=== PATIENT | male | born 1960 | race Caucasian/White ===

== ENCOUNTER 2016-10-12 17:10 | Inpatient (IN) | payer MEDICARE ==
--- NOTE | ~2016-10-12 | CT2 ---
[facility] A Service of [facility] & [facility] RADIOLOGY TEXT RESULTS PATIENT: NANCY COLLAZO LOCATION: [address] : 56 UNIT #: [id number] AGE: [address]: Kinga Bartholomew MD SEX: M ORDER DR: [id number] [facility] [address] [facility]. [place], [place] [address] [id number] I MR#: [id number] Acc #: [id number] NAME: NANCY COLLAZO. : 1960 SEX: M STUDY DATE/TIME: 10/12/2016 15:00 UNIT: [facility] ROOM: [facility] STUDY DESCRIPTION: CT Abd and Pelv W Cont Attending Physician: Narda Guevara M.D. Ordering Physician: Rosie Velasquez M.D. Primary Care Physician: Primary Care Physician No MEDICAL IMAGING REPORT This report is preliminary unless electronic signature is present EXAM CT abdomen and pelvis with IV contrast. HISTORY Abdomen pain today. This CT exam was performed with one or more of the following radiation dose reduction techniques: automatic exposure control, adjustment of mA and/or kV according to patient size, and iterative reconstruction. FINDINGS CT abdomen and pelvis was performed with IV contrast. CT ABDOMEN: Mild diffuse fatty infiltration of the liver. Cholecystectomy. The spleen, and adrenal glands are normal. Multifocal small parenchymal scars in both kidneys and incidental small bilateral renal cysts. Generalized pancreatic parenchymal atrophy. No ascites. Normal caliber abdominal aorta. No adenopathy. Mild diffuse colonic wall thickening, but no bowel dilatation. No ascites or adenopathy. CT PELVIS: Mild diffuse wall thickening of the sigmoid colon and rectum. No bowel dilatation. Mild colonic diverticulosis but no diverticulitis. No free fluid. Singletary catheter in the urinary bladder. Implanted pump in the subcutaneous tissues over the left anterior pelvis with catheter extending into the lumbar spinal canal. IMPRESSION 1. Mild diffuse wall thickening of the colon and rectum could be due to mild infectious or inflammatory colitis. No bowel dilatation or inflammatory stranding in the abdomen or pelvis. No ascites. 2. Fatty infiltration of the liver. 3. Incidental multifocal parenchymal scarring in both kidneys. STS. [facility] A Service of [facility] & [facility] RADIOLOGY TEXT RESULTS PATIENT: NANCY COLLAZO LOCATION: [address] : [birth year] UNIT #: [id number] AGE: [address]: Kinga Bartholomew MD SEX: M ORDER DR: Dictated by... Ritchie Hernandez M.D. THIS IS AN ELECTRONICALLY VERIFIED REPORT Ritchie Hernandez M.D. at 10/13/2016 11:00 AM NORMA/avni TD: 10/13/2016 05:12 JOB #: [id number] MEDICAL IMAGING REPORT Page 1 of 1 COPY
--- NOTE | ~2016-10-12 | EE ---
Unit #: [id number] #: [id number] Patient: NANCY COLLAZO [id number] [address] [address] [id number] I MR#: [id number] NAME: NANCY COLLAZO. : 1960 SEX: M STUDY DATE/TIME: 10/14/2016 UNIT: [facility] ROOM: [facility] STUDY DESCRIPTION: EEG Attending Physician: Kinga Bartholomew M.D. Primary Care Physician: No Primary Care Physician NEURODIAGNOSTICS REPORT EXAM EEG REFERRING PHYSICIAN Dana Mccarty and Kinga Bartholomew M.D. REASON FOR THE STUDY Acute respiratory failure, decreased level of consciousness. EEG DESCRIPTION This is a portable, inpatient, digitally recorded multi-montage adult EEG with leads placed according to the International 10-20 System. Hyperventilation and photic stimulation was not done. This EEG shows significant beta artifact, possible muscle artifact and underlying rhythm is delta 2-3 Hz. Towards the end, there was some slowing in this activity as much as the motor activity was seen for a few seconds and apparently the patient opened his eyes and that may have been just spontaneous. The important factor is I did not see any significant reactivity, I did not see anything suggesting seizure or status or interictal discharges. His medications and other condition is not known. Hyperventilation and photic stimulation was not done. IMPRESSION Abnormal EEG showing diffuse slowing which is indicative of encephalopathy and beyond that I cannot see anything because of the artifact. Clinical correlation is recommended. Dictated by... Kash Echeverria/celestino TD: 10/15/2016 07:16 JOB #: [id number] Unit #: [id number] #: [id number] Patient: NANCY COLLAZO NEURODIAGNOSTICS REPORT Page 1 of 1 X Shandra Brand MD NEURODIAGNOSTICS REPORT
--- NOTE | ~2016-10-12 | CT71 ---
[facility] A Service of [facility] & [facility] RADIOLOGY TEXT RESULTS PATIENT: NANCY COLLAZO LOCATION: [place] [address] : 56 UNIT #: [id number] AGE: [address]: Kinga Bartholomew MD SEX: M ORDER DR: [id number] [facility] [address] [facility]. [place], [place] [address] [id number] I MR#: [id number] Acc #: [id number] NAME: NANCY COLLAZO : 1960 SEX: M STUDY DATE/TIME: 10/13/2016 11:13 UNIT: [facility] ROOM: [facility] STUDY DESCRIPTION: CT Head Wo Contrast Attending Physician: Kinga Bartholomew M.D. Ordering Physician: Kinga Bartholomew M.D. Primary Care Physician: Primary Care Physician No MEDICAL IMAGING REPORT This report is preliminary unless electronic signature is present EXAM Head CT without. HISTORY Left-side weakness. Intubated in emergency room 10/12/2016 with sepsis, aspiration pneumonia, and acute respiratory failure, acute kidney injury. Now the patient has left-sided weakness since 10/12/2016 for further evaluation. History of polysubstance abuse and hypertension. TECHNIQUE Routine noncontrast head CT is reviewed. This CT exam was performed with one or more of the following radiation dose reduction techniques: automatic exposure control, adjustment of mA and/or kV according to patient size, and iterative reconstruction. COMPARISON STUDIES There is a comparison from 10/12/2016. COMMENT There is no displaced calvarial fracture. The mastoid air cells are clear. There is partial opacification of the right frontal sinus with AN air-fluid level consistent with a component of acute sinusitis and there is some partial opacification of the right anterior ethmoid air cells. Small amount of vascular calcifications carotid siphons. There is abnormal low-attenuation geographically in the left anterior rahul about 2.1 x 1.4 cm in dimension. Small areas of low attenuation in the right cerebellar hemisphere, more peripherally and linear. No acute intracranial hemorrhage or extraaxial fluid collection. The basilar cisterns are patent. There is an area of abnormal low-attenuation in the right paramedian rahul more inferior than the left-sided changes about 2.1 STS. [facility] A Service of [facility] RADIOLOGY TEXT RESULTS PATIENT: NANCY COLLAZO LOCATION: CICCU2 CICCU2-05 : 56 UNIT #: [id number] AGE: [address]: Kinga Bartholomew MD SEX: M ORDER DR: cm AP dimension, 0.8 cm ML dimension. None of these areas is associated with significant mass effect. The prior study is very motion limited. The left hemipons changes might have been present at that time. The right hemipons changes are not seen previously and it is possible that they are simply due to beam-hardening artifact currently. If the patient is a candidate, findings are best assessed further with an MRI. If not, followup head CT is recommended. There is focal malacic change seen at the left posterior-inferior lateral temporal lobe overlying the mastoid bone and in this dislocation, I suspect this is due to previous trauma. This is probably a chronic finding. Probably a small lacune in the left caudate head. Small mucous retention cyst on the left sphenoid sinus. IMPRESSION There are several areas of abnormal low-attenuation. These include a geographic area in the left hemipons, more superiorly about 2.1 x 1.4 cm. A second area of abnormal low-attenuation in the right hemipons is seen inferior to this about 2.1 x 0.8 cm. This second area could be related to beam hardening artifact and artifactual. There are small areas of abnormal linear low attenuation at the right cerebellar hemisphere suggestive of a small shower of thromboembolic insults or tiny lacunes. No definite acute intracranial hemorrhage is seen. Additionally, I believe there is an old insults at the left temporal lobe posteriorly inferiorly laterally just above the mastoid and in this location, this is probably due to some remote traumatic insult. If the patient is a candidate for MRI, this would best further evaluate areas of acute ischemia. At minimum, followup imaging is recommended. No midline shift. Basilar cisterns patent. Atherosclerotic vascular calcifications are present. There is an air-fluid level within a considerably opacified right frontal sinus consistent with a component of acute sinusitis. STAT * RESULT Dictated by... Karen Milton M.D. THIS IS AN ELECTRONICALLY VERIFIED REPORT Karen Milton M.D. at 10/14/2016 8:33 AM PASTOR/maria g TD: 10/13/2016 11:52 JOB #: [id number] MEDICAL IMAGING REPORT Page 1 of 1 COPY
--- NOTE | ~2016-10-12 | FU ---
[facility] Nutrition Therapy DATE: 10/16/16 Patient: NANCY COLLAZO Physician: BRANDON Address: [address] Room/Bed: [address], Zip: [place] [address] Admit Date: 10/12/16 Date of : 56 Height: 6 0 Weight: 149 68 NUTRITION MONITORING/FOLLOW-UP: Reason: PT SEEN FOR FOR ENTERAL NUTRITION SUPPORT DX: ACUTE RESP FAILURE Anthropometrics: 6'0", WT: 149# (68 KG), BMI: 20.2 -WEIGHTS HAVE BEEN STABLE SINCE ADMIT Labs: GLU: 168, BUN: 39, ALB: 2.3, NA+:151 Meds: REGLAN, SOLU-MEDROL, PROTONIX, KCL, NOVOLOG, PROPOFOL (CURRENTLY OFF) I&O's: 4560/3220 Skin: ISSUES PREVIOUSLY NOTED EDEMA: (R) HAND 1+ EDEMA Estimated Nutrition Needs: [id number] KCAL 99-132 G PRO Assessment: CHART REVIEWED AND EVENTS NOTED. PT SEEN FOR ENTERAL NUTRITION SUPPORT. PT CONTINUES TO BE INTUBATED AT TIME OF VISIT RECEIVING ALTERNATIVE NUTRITION SUPPORT OF JEVITY 1.5 @ 40 ML/HR. PER RN AND CHART, RESIDUALS NOTED ~150-200 ML. OF NOTE, PROPOFOL CURRENTLY OFF AT THIS TIME. FAMILY IN ROOM REPORTED NO DIET QUESTIONS AT THIS TIME. RD TO CONTINUE TO FOLLOW. PER MD NOTES, ?COMFORT MEASURES Dx: INADEQUATE PROTEIN-ENERGY INTAKE R/T INTUBATION, CURRENT CLINICAL CONDITION AEB NPO STATUS, 81%IBW, FAMILY REPORT ABOVE.-ACTIVE INADEQUATE PROTEIN-ENERGY INTAKE R/T INTUBATION, CURRENT CLINICAL CONDITION AEB PT RECEIVING EN. Intervention: 1. ENTERAL NUTRITION SUPPORT Monitoring, Evaluation and Goals: GOALS NOT MET 1. ENTERAL NUTRITION; PROVIDE ~80-100% ESTIMATED NUTRIENT NEEDS AT GOAL 2. ORAL INTAKE; ADVANCE DIET AND CONSUME >50% OF MEALS W/NO C/O N/V/D 3. LABS; WNL: GLU 4. GI; PROMOTE REGULAR GI FUNCTION MONITOR: [facility] Nutrition Therapy DATE: 10/16/16 Patient: NANCY COLLAZO Physician: BRANDON Address: [address] Room/Bed: [address], Zip: [place] [address] Admit Date: 10/12/16 Date of : 56 Height: 6 0 Weight: 149 68 -TF RATE/RESIDUALS -WEIGHTS -EXTUBATION? -LABS Recommendations: 1. ONCE MEDICALLY FEASIBLE, ADVANCE CURRENT ENTERAL NUTRITION SUPPORT OF JEVITY 1.5 TO GOAL RATE OF 60 ML/HR + SUGAR-FREE PROSTAT DAILY -PROVIDES 2260 KCAL, 107 G PRO, 1094 ML FREE H20 ADD FREE H20 FLUSHES OF 180 ML q 4 HOURS TO MEET PT'S CURRENT ESTIMATED FLUID NEEDS OR MANAGE PER MD 2. CONTINUE TO OPTIMIZE BLOOD SUGAR CONTROL REGIMEN-PT'S BLOOD SUGARS ELEVATED 2' STEROIDS 3. ONCE PT EXTUBATED, ADVANCE DIET PER NEUROPSYCHOLOGY SERVICE DIRECTOR + HH DIET RD WILL F/U PER PROTOCOL PT IS SEVERELY COMPROMISED Respectfully, DIANE YEAGER MS, RD, LD [employer] and Nutritional Services [facility] cc: client file
--- NOTE | ~2016-10-12 | CO ---
Unit #: [id number] #: [id number] Patient: NANCY COLLAZO [id number] [facility] [address] [facility]. [place], [place] [address] [id number] I MR#: [id number] NAME: NANCY COLLAZO ROOM: [facility] Age: 56 Sex: M Admission Date: 10/12/2016 : 1960 Attending Physician: Kinga Bartholomew M.D. Primary Care Physician: Primary Care Physician No Consultation Date: 10/13/2016 CONSULTATION REPORT PRIMARY CARE PHYSICIAN Not listed. REASON FOR CONSULTATION Abnormal head CT and left-sided weakness. PATIENT IDENTIFICATION This is a 56-year-old unknown handedness male evaluated in ICU room 5 at [facility]. SOURCE OF INFORMATION Obtained from the medical record and discussion with nursing and medical staff and discussion with Dr. Bartholomew. HISTORY OF PRESENT ILLNESS This is a 56-year-old unknown handedness male with past medical history of hypertension, chronic pancreatitis, and tobacco use, who presents to [facility] with altered mental status. Apparently, his last known well was on the 10/11/2016 the day prior to admission. He lives with a roommate. According to the ER notes, had stated that he was left on the couch all night and apparently roommate called EMS due to decreased response, though again the last known well was the day prior to admission. I do not have full detailed family history today, but they do not live with him. Apparently, the roommate I am assuming he is the one that may have called EMS. He did arrive via EMS. He was found to have left-sided weakness, poor responsiveness, elevated lactic acid and CK level. Chest x-ray was concerning for pneumonia. He was intubated in the ED for airway protection. He was admitted for aspiration pneumonia, sepsis, and acute respiratory failure. Head CT was done, but it was severely motion degraded, did not reveal any definitive findings or gross abnormalities. Repeat CT today was done for continued left-sided weakness, which shows areas of low attenuation in the left rahul, questionably in the right rahul, so it may be artifact from beam hardening and also an area in the right cerebellar concerning for areas of age-indeterminate ischemia with no prior comparisons other than from his initial arrival and again in looking at it, there maybe a very questionable area in the right rahul, but it is severely motion degraded. I am unable to determine any obvious abnormalities looking at it. No prior comparisons are available prior to that CT. Of note, the patient is also being ruled out for possible overdoses. Urine tox screen is positive for amphetamines and opioids. Really, it is not clear exactly what his presentation is other than he was found by the roommate to be poorly responsive and EMS was called. The patient is unable to provide any history and review of systems as he is intubated and sedated. Upon Unit #: [id number] #: [id number] Patient: NANCY COLLAZO evaluation, he has decreased response on the left side, though interestingly, he has left gaze preference that is not overcome with oculocephalic maneuver. No active seizures were seen. On exam, he is clearly and consistently weaker on the left compared to the right. He has a very questionable mild response withdrawal on the left when sedation is off on the right. He moves his arm to pull at the ventilator tube and moves his right arm against gravity spontaneously and also in response to noxious stimuli very clearly. The patient does not follow commands; however, preliminary, his blood culture shows 1/2 sets growing gram-positive cocci in clusters with identification sensitivity to follow. Other labs are pending. His CK is down to 637. His initial CK was over 3500. Initial lactic acid 3.2 with repeat lactic acid 3.3. His ammonia level was 24 on arrival and troponin less than 0.05. CT angio of the chest shows patchy multifocal infiltrate in the right upper lobe and additional minimal multifocal patchy infiltrate in the left upper lobe and bilateral lower lobes. It was likely infectious or inflammatory. CT of the abdomen and pelvis was also done that showed mild diffuse wall thickening of the colon and rectum could be due to mild infectious or inflammatory colitis. No bowel dilatation or inflammatory stranding in the abdomen or pelvis. No ascites. It also shows fatty infiltration of the liver and incidental multifocal parenchymal scarring in both kidneys. PAST MEDICAL HISTORY 1. Hypertension. 2. Chronic pancreatitis. 3. History of pain pump insertion, though apparently per family, he is not actively used his pain pump for several years. It is however still in place. 4. Tobacco use. Otherwise review of systems are unable to be fully obtained given the patient cannot provide any history. This is from the ER notes and medical record. ALLERGIES No known drug allergies. HOME MEDICATIONS Unknown at this time. FAMILY HISTORY Unknown at this time and unobtainable from the patient. SOCIAL HISTORY It is documented that he smokes a pack per day of tobacco. Alcohol use history is unknown. His urine tox screen is positive for amphetamines and opioids. REVIEW OF SYSTEMS Unable to obtain from the patient at this time given his mental status. PHYSICAL EXAMINATION VITAL SIGNS: Temperature 98.7, he had a T-max yesterday of 102.2; pulse 109; respirations 28, blood pressure 156/81, oxygen saturation 99%. Height 6 feet 0 inches, weight 145 pounds. BMI 19. NEUROLOGIC: The patient is intubated. He is sedated on propofol. When I stopped his propofol for sedation vacation, he becomes tachycardic. He does not follow commands so as discussed above. He does have more movement on the right compared to the left. Cranial nerve exam; unable to Unit #: [id number] #: [id number] Patient: NANCY COLLAZO evaluate conway of vision as far as evaluating his eyes and extraocular movements. He appears to have a gaze preference toward the left. I am not able to overcome this with oculocephalic maneuver and this is noted on repeated evaluation. Unable to assess sensation of face and scalp or strength of muscles of facial expression. Hearing is unable to be assessed. Tongue, uvula, and palate are unable to be assessed. Head turning and shoulder shrug unable to assess. Neck appears to be supple at this time. Motor exam, he wakes up more off the sedation. He moves the right side spontaneously more so in response to gag reflex on the ventilator. He moves his hand up towards the ET tube and he responds more to noxious stimuli on the left side. He has a very mild movement questionable withdrawal on the left side, but minimal. He definitely does not lift against gravity on the left side. He does not follow commands on either side. Tone is normal to decrease. Sensory exam as discussed above in response to noxious stimuli. Unable to evaluate in detail. Gait and Romberg unable to be evaluated at this time. Coordination unable to be evaluated at this time. DIAGNOSTIC STUDIES IMAGING STUDIES: Please see above. They are discussed in detailed in the HPI. LABORATORY RESULTS: Labs also discussed above in the HPI. They have been reviewed and are as per chart. IMPRESSION 1. Decrease in level of consciousness, left-sided weakness, questionable Anup's phenomenon picture versus stroke with interesting as he has a gaze preference toward the left with left-sided weakness, but looking at the CT scan of his head, he has multifocal areas of low attenuation. 2. Abnormal CT of the head with age indeterminate areas of low attenuation. 3. Urine tox screen positive for opioids and amphetamines, questionable overdose. 4. Fever/sepsis. 5. Aspiration pneumonia, present on admission. 6. Acute exacerbation of chronic obstructive pulmonary disease. 7. Acute respiratory failure. 8. Acute rhabdomyolysis. 9. Irregular heart rate versus multiple PVCs communicated with Dr. Bartholomew. PLAN I have discussed the case with Dr. Brand. The patient has a normal CT of the head. I have reviewed and discussed that with him. Comparison from yesterday is too motion degraded. Exam shows signs that are concerning for Anup's phenomenon type picture given his gaze preference and focal weakness, but his CT does show multiple focal areas of low attenuation again. These appear age indeterminate and we have no prior good CTs for comparison. We will check an EEG. We will repeat CT of the head in the morning. We requested MRI. Family can confirm or provide documentation regarding his pain pump to see if that is compatible. We will start the patient on stat Keppra. We may have to consider a lumbar puncture if needed. He has been given Rocephin for 2 days and is on other multiple broad-spectrum antibiotics. His neck is supple; however, decrease in mental status and fever. Rule out EXPELLER OPERATOR infectious etiology. We will follow the patient closely along with you and consider all possible differential diagnoses. In the meantime, we will treat the patient with Keppra and aspirin and get further imaging as we are able. Unit #: [id number] #: [id number] Patient: NANCY COLLAZO Case discussed with Dr. Brand at length and he agrees with the above. We will follow along with you. Dictated by... Dana Mccarty A.P.R.N. for Kash Echeverria/veronica TD: 10/14/2016 05:27 JOB #: [id number] CONSULTATION REPORT Page 1 of 1 X Dana Mccarty APRN CONSULTATION REPORT
--- NOTE | ~2016-10-12 | CT16 ---
[facility] A Service of [facility] RADIOLOGY TEXT RESULTS PATIENT: NANCY COLLAZO LOCATION: [place] [address] : [birth year] UNIT #: [id number] AGE: [address]: Kinga Bartholomew MD SEX: M ORDER DR: [id number] [facility] [address] [facility]. [place], [place] [address] [id number] MR#: [id number] Acc #: [id number] NAME: NANCY COLLAZO : 1960 SEX: M STUDY DATE/TIME: 10/12/2016 17:17 UNIT: [facility] ROOM: [facility] STUDY DESCRIPTION: CT Angio Chest for PE Attending Physician: Narda Guevara M.D. Ordering Physician: Rosie Velasquez M.D. Primary Care Physician: Primary Care Physician No MEDICAL IMAGING REPORT This report is preliminary unless electronic signature is present EXAM CT angiogram chest with IV contrast. HISTORY Shortness of air today. This CT exam was performed with one or more of the following radiation dose reduction techniques: automatic exposure control, adjustment of mA and/or kV according to patient size, and iterative reconstruction. FINDINGS IV contrast enhanced CT angiogram chest was performed with 3-D reconstructions. Uisf-iq-kbldqfaq patchy infiltrates in the posterior right upper lobe and minimal patchy multifocal infiltrates in the left upper lobe. There are also minimal patchy multifocal infiltrates in the bilateral lower lobes. Mild bilateral bronchiectasis. Mild emphysema primarily in the upper lobes. No pleural effusions. Mild dilatation of the distal aortic arch extending to its junction of the proximal descending thoracic aorta measuring 3.6 cm in diameter. No evidence of pulmonary embolus. No adenopathy. No pericardial thickening or effusion. IMPRESSION 1. No evidence of pulmonary embolus. 2. Wmhc-nc-mxyxtudv patchy multifocal infiltrates in the right upper lobe and additional minimal multifocal patchy infiltrates in the left upper lobe and bilateral lower lobes, most likely infectious or inflammatory. 3. Mild emphysema in the bilateral upper lobes. 4. No pleural effusions. No adenopathy. 5. Mild dilatation of the distal aortic arch measuring 3.6 cm. STS. [facility] A Service of [facility] RADIOLOGY TEXT RESULTS PATIENT: NANCY COLLAZO LOCATION: [address] : [birth year] UNIT #: [id number] AGE: [address]: Kinga Bartholomew MD SEX: M ORDER DR: Dictated by... Ritchie Hernandez M.D. THIS IS AN ELECTRONICALLY VERIFIED REPORT Ritchie Hernandez M.D. at 10/13/2016 11:01 AM NORMA/avni TD: 10/13/2016 05:43 JOB #: [id number] MEDICAL IMAGING REPORT Page 1 of 1 COPY
--- NOTE | ~2016-10-12 | CR7 ---
[facility] A Service of [facility] RADIOLOGY TEXT RESULTS PATIENT: NANCY COLLAZO LOCATION: [place] [address] : 56 UNIT #: [id number] AGE: [address]: Kinga Bartholomew MD SEX: M ORDER DR: [id number] [facility] [address] [facility]. [place], [place] [address] [id number] I MR#: [id number] Acc #: [id number] NAME: NANCY COLLAZO : 1960 SEX: M STUDY DATE/TIME: 10/13/2016 13:18 [facility] RO[facility]: [facility] STUDY DESCRIPTION: CR Abdomen Single AP View Attending Physician: Kinga Bartholomew M.D. Ordering Physician: Kinga Bartholomew M.D. Primary Care Physician: No Primary Care Physician MEDICAL IMAGING REPORT This report is preliminary unless electronic signature is present EXAM Portable abdomen for Dobbhoff tube placement, 10/13/2016. HISTORY Dobbhoff tube placement. TECHNIQUE AP radiograph of the upper abdomen. FINDINGS Dobbhoff tube tip is in the midportion of the stomach at 1318 hours on 10/13/2016. Dictated by... Adrian Meraz M.D. THIS IS AN ELECTRONICALLY VERIFIED REPORT Adrian Meraz M.D. at 10/13/2016 3:58 PM ALEYDAW/maria g TD: 10/13/2016 14:43 JOB #: [id number] MEDICAL IMAGING REPORT Page 1 of 1 COPY
--- NOTE | ~2016-10-12 | CT71 ---
[facility] A Service of [facility] RADIOLOGY TEXT RESULTS PATIENT: NANCY COLLAZO LOCATION: [address] : [birth year] UNIT #: [id number] AGE: [address]: Kinga Bartholomew MD SEX: M ORDER DR: [id number] [facility] [address] [facility]. [place], [place] [address] [id number] I MR#: [id number] Acc #: [id number] NAME: NANCY COLLAOZ. : 1960 SEX: M STUDY DATE/TIME: 10/12/2016 13:34 [facility]: [facility] RO[facility]: [facility] STUDY DESCRIPTION: CT Head Wo Contrast Attending Physician: Narda Guevara M.D. Ordering Physician: Rosie Velasquez M.D. Primary Care Physician: Primary Care Physician No MEDICAL IMAGING REPORT This report is preliminary unless electronic signature is present EXAM CT head without contrast 10/12/2016 HISTORY 56-year-old male with left-sided weakness beginning today. COMPARISON Brain MRI 02/14/2003 TECHNIQUE Routine unenhanced axial images performed through the brain. This CT exam was performed with one or more of the following radiation dose reduction techniques: Automatic exposure control, adjustment of mA and/or kV according to patient size, and iterative reconstruction. FINDINGS Examination is severely limited by motion artifact on all sequences. Allowing for this, no gross evidence of acute hemorrhage, infarction, mass lesion, or abnormal extraaxial fluid collection. No midline shift or focal mass effect. Ventricular system normal in size and configuration. No gross acute bony abnormality. Visualized paranasal sinuses and mastoid air cells are clear. IMPRESSION Severely motion limited exam. No gross acute intracranial abnormality. Dictated by... Elia Christianson M.D. THIS IS AN ELECTRONICALLY VERIFIED REPORT Elia Christianson M.D. at 10/13/2016 8:46 AM JKB/psc [facility] A Service of [facility] RADIOLOGY TEXT RESULTS PATIENT: NANCY COLLAZO LOCATION: [facility]05 : 56 UNIT #: [id number] AGE: [address]: Kinga Bartholomew MD SEX: M ORDER DR: TD: 10/13/2016 00:25 JOB #: [id number] MEDICAL IMAGING REPORT Page 1 of 1 COPY
--- NOTE | ~2016-10-12 | HP ---
Unit #: [id number] #: [id number] Patient: NANCY COLLAZO [id number] [place] [id number] [facility]. [place], [place] [address] [id number] I MR#: [id number] NAME: NANCY COLLAZO. ROOM: [facility] Age: 56 Sex: M Admission Date: 10/12/2016 : 1960 Attending Physician: Kinga Bartholomew M.D. Primary Care Physician: No Primary Care Physician HISTORY AND PHYSICAL CHIEF COMPLAINT Altered mental status. HISTORY OF PRESENT ILLNESS 56-year-old male who basically lives with his roommate. Nobody is available to provide history at this time. History is from (1) sources and ER doc at this time. Patient is not responsive currently on the ventilator right now. I am unable to obtain a full history from patient at this time. He was brought in and said to be having some altered mental status and subsequently intubated here in the ER. He is currently on the ventilator. Patient's three children are available, however, they do not have any history to provide at this time. REVIEW OF SYSTEMS Unobtainable. PAST MEDICAL HISTORY Some history of hypertension. Some history of chronic pancreatitis, but other than that, not able to really see the history. PAST SURGICAL HISTORY Per family, he has had multiple pain pumps installed and he has had knee surgery and back surgery in the past. HOME MEDICATIONS Unknown. ALLERGIES No inflammation available at this time. SOCIAL HISTORY Smokes a pack of cigarettes a day. I do not have a history to suggest alcohol use or illicit drug use at this time. FAMILY HISTORY Unobtainable at this time. PHYSICAL EXAMINATION GENERAL: Patient is on the ventilator, not responsive on a Diprivan drip, on a Cardene drip. VITAL SIGNS: Blood pressure was 234/140, on presentation blood pressure now is down to 160/99 on the Cardene drip. Temperature 102.5, pulse 100. HEENT: Pupils equal, round, reactive to light and accommodation. NECK: Supple without thyromegaly. Unit #: [id number] #: [id number] Patient: NANCY COLLAZO CHEST: Decreased breath sounds especially in the right lung conway. Vesicular breath sounds in the left lung field. Average breath sounds in lung bases posteriorly with crackles. ABDOMEN: Full with respirations soft. No palpable organomegaly that I could appreciate. FUNDRAISING SPECIALIST: Limited exam at this time. Patient had a Diprivan drip and is unable to assess. LYMPHATIC: No enlarged peripheral lymphadenopathy. SKIN: Sallow looking. DIAGNOSTIC STUDIES CARDIOLOGY STUDIES: EKG - sinus rhythm, premature ventricular complexes. LABORATORY STUDIES: He also had a CBC with a white count of 36,000, hemoglobin and hematocrit 17.4 and 54.1, platelet count 385. Chemistries - glucose 146, BUN and creatinine 25 and 1.1. He had sodium and potassium of 143 and 37, chloride and bicarbonate 104 and 25 respectively. AST and ALT 69 and 33 respectively with an alk phos of 130. He had a CK of 351 with a BNP of 136 and a lactic acid of 3.3. Patient had a urine tox, which showed positive for amphetamines and opiates. Urinalysis shows trace protein, glucose of 250, urobilinogen of 1.0. IMAGING STUDIES: Chest x-ray, which per ER doc, showed questionable infiltrates. He had a CT scan of his chest also which shows a multifocal infiltrate as well. ASSESSMENT AND PLAN 1. Sepsis, admit to the ICU. He is on broad spectrum antibiotics. 2. Multifocal pneumonia. He is on antibiotics, Levaquin and ceftriaxone. 3. Acute respiratory failure who is currently on a ventilator. We consulted Dr. Marks, switch operators supervisor for vent management. 4. GI prophylaxis, put him on Protonix 40 mg IV daily. 5. DVT prophylaxis, put him on Lovenox 40 mg subcu daily. 6. Check a CBC and BMP in the morning. 7. Code status is full code. Dictated by Kash Collier TD: 10/13/2016 10:21 JOB #: [id number] HISTORY AND PHYSICAL Page 1 of 1 X Narda Guevara MD HISTORY AND PHYSICAL
--- NOTE | ~2016-10-12 | CR72 ---
[facility] A Service of [facility] RADIOLOGY TEXT RESULTS PATIENT: NANCY COLLAZO LOCATION: [address] : [birth year] UNIT #: [id number] AGE: [address]: Kinga Bartholomew MD SEX: M ORDER DR: [id number] [facility] [address] [facility]. [place], [place] [address] [id number] I MR#: [id number] Acc #: [id number] NAME: NANCY COLLAZO : 1960 SEX: M STUDY DATE/TIME: 10/12/2016 20:03 UNIT: [facility] ROOM: [facility] STUDY DESCRIPTION: CR Chest Single View Portable Attending Physician: Kinga Bartholomew M.D. Ordering Physician: Rosie Velasquez M.D. Primary Care Physician: Primary Care Physician No MEDICAL IMAGING REPORT This report is preliminary unless electronic signature is present EXAM Portable chest HISTORY Decreased oxygen saturation today. FINDINGS ETT has been pulled back slightly since earlier today with its tip now approximately 6 cm above the britney. Left IJ central line tip is in the mid SVC approximately 5.5 cm above the junction of the SVC and right atrium. The cardiac and mediastinal contours are normal and the lungs are clear. Dictated by... Ritchie Hernandez M.D. THIS IS AN ELECTRONICALLY VERIFIED REPORT Ritchie Hernandez M.D. at 10/13/2016 11:06 AM NORMA/grace TD: 10/13/2016 07:52 JOB #: [id number] MEDICAL IMAGING REPORT Page 1 of 1 COPY
--- NOTE | ~2016-10-12 | A ---
[facility] Nutrition Therapy DATE: 10/13/16 Patient: NANCY COLLAZO Physician: BRANDON Address: [address] Room/Bed: [address], Zip: [place] [address] Admit Date: 10/12/16 Date of : 56 Height: 6 0 Weight: 145 66 NUTRITIONAL ASSESSMENT: REASON: No diet order in the ICU, pt intubated 56 yo male admitted for acute respiratory failure PMH: polysubstance abuse, HTN (no current PMH in [facility], obtained from chart) Anthropometrics: Ht: 6'0" Wt: 65.9 kg (145#) BMI: 19.7 IBW: 178#, 81% IBW Labs: Gluc 224, BUN 25, AST 69, POC 151, Lip 16 Meds: Propofol @ 15.4 mL/hr, Levaquin, Solu-medrol, Protonix, D5% I/O & Bowel function: 1596/410, last BM 10/12 Skin Integrity: Pain pump (LLQ abd), scars (lower spine, R shoulder, abd, R knee, arms, coccyx), no edema noted Estimated Nutrition Needs: 5652-2827 kcal (30-35 kcal/kg) 99-132 g protein (1.5-2.0 g/kg) Assessment: Chart reviewed, events noted. Medical records unavailable in [facility]. Per chart, pt has h/o HTN and polysubstance abuse. Pt is currently intubated and sedated in ICU. Per chart, plans in place for DHT. Pt is currently receiving Propofol @ 15.4 mL/hr, which provides 407 kcal from lipids. Per family, pt's weight fluctuates ~140-160#. Pt noted to have sporadic eating patterns at home, tends to skip meals. Notes decreased appetite at various times. See recommendations below. Dx: Inadequate protein-energy intake RT intubation, current clinical condition AEB NPO status, 81% IBW, family report above. Intervention: 1. Enteral nutrition Monitoring, Evaluation and Goals: 1. Enteral nutrition; provide >80% of estimated needs and goal volume x 24 hrs 2. Weight; prevent unintentional weight loss, promote gradual weight gain 3. Labs; WNL Recommendations: 1. Once medically feasible, while pt is receiving propofol, initiate enteral nutrition [facility] Nutrition Therapy DATE: 10/13/16 Patient: NANCY COLLAZO Physician: BRANDON Address: [address] Room/Bed: [address], Zip: [place] [address] Admit Date: 10/12/16 Date of : 56 Height: 6 0 Weight: 145 66 support with Jevity 1.5 @ 15 mL/hr + 30 mL Prostat TID, advance 10 mL q 8 hrs to goal rate of 40 mL/hr + 30 mL Prostat TID. This will provide: 2147 kcal/ 106 g protein/ 730 mL free H2O. 2. Once propofol is d/c'd, recommend increasing rate of Jevity 1.5 to new goal rate of 60 mL/hr + 30 mL Prostat daily. This will provide: 2260 kcal/ 107 g protein/ 1094 mL free H2O. 3. Optimize blood sugar control regimen - of note pt's blood sugars elevated 2' steroids. 4. Once extubated, advance diet per SHIFT SUPERINTENDENT + heart healthy diet. Pt is at a severe nutritional risk. RD will f/u per protocol. Respectfully, Kiah Proctor, Care Center Manager Juni Woodall MS, RD, LD [facility] cc: client file
--- NOTE | ~2016-10-12 | CO ---
Unit #: [id number] #: [id number] Patient: NANCY COLLAZO [id number] [address] [id number] Angélica MR#: [id number] NAME: NANCY COLLAZO. ROOM: [facility] Age: 56 Sex: M Admission Date: 10/12/2016 : 1960 Attending Physician: Kinga Bartholomew M.D. Primary Care Physician: No Primary Care Physician CONSULTATION REPORT CHIEF COMPLAINT Shortness of breath and altered mental status. REASON FOR CONSULTATION Respiratory failure and critical care management. HISTORY OF PRESENT ILLNESS The patient presented to the emergency room and presented with the complaint of shortness of breath and was intubated by the emergency room physician. He has been admitted with the impression of sepsis, acute respiratory failure, colitis and I am seeing him at the bedside. Currently he is intubated and sedated. PAST MEDICAL HISTORY Likely chronic obstructive pulmonary disease. SOCIAL HISTORY Positive for smoking. No alcohol. No drug abuse. FAMILY HISTORY None. ALLERGIES Reviewed. CURRENT MEDICATIONS As per AUG. have been reviewed. REVIEW OF SYSTEMS Unobtainable. PHYSICAL EXAMINATION VITALS: Temperature 100, pulse 98, respiratory rate 16, blood pressure 155/90. LUNGS: Bilateral air entry. Bilateral mild rhonchi. HEART: S1 plus S2. ABDOMEN: Nontender and soft. Bowel sounds positive. EXTREMITIES: No edema. SKIN: No rashes. No ulcers. LYMPH: No lymphadenopathy. NEUROLOGIC: The patient is sedated. DIAGNOSTIC STUDIES LABORATORY: White blood cell count 33, hemoglobin 16, platelets 252, Unit #: [id number] #: [id number] Patient: NANCY COLLAZO creatinine 1.3, lactic acid 2.7. ASSESSMENT 1. Sepsis. 2. Aspiration pneumonia. 3. Colitis. 4. Acute respiratory failure. 5. Rhabdomyolysis. 6. Acute kidney injury. 7. Polysubstance abuse. 8. Hyperglycemia. 9. Acute exacerbation of chronic obstructive pulmonary disease. 10. Hypertension. 11. Left-sided weakness. PLAN Continue the patient on ventilator support. Continue oxygen, bronchodilator, IV steroids, IV antibiotics, GI and DVT prophylaxis. May need bronchoscopy. I will continue to follow. Please see orders for detailed plan. Thank you very much for this consultation. Dictated by... Kash Dos Santos/destiny TD: 10/13/2016 10:39 JOB #: [id number] CONSULTATION REPORT Page 1 of 1 X Ramo Marks MD CONSULTATION REPORT
--- NOTE | ~2016-10-12 | CR72 ---
[facility] A Service of [facility] RADIOLOGY TEXT RESULTS PATIENT: NANCY COLLAZO LOCATION: [address] : [birth year] UNIT #: [id number] AGE: [address]: Kinga Bartholomew MD SEX: M ORDER DR: [id number] [facility] [address] [facility]. [place], [place] [address] [id number] I MR#: [id number] Acc #: [id number] NAME: NANCY COLLAZO : 1960 SEX: M STUDY DATE/TIME: 10/12/2016 15:52 UNIT: [facility] ROOM: [facility] STUDY DESCRIPTION: CR Chest Single View Portable Attending Physician: Narda Guevara M.D. Ordering Physician: Rosie Velasquez M.D. Primary Care Physician: Primary Care Physician No MEDICAL IMAGING REPORT This report is preliminary unless electronic signature is present EXAM Single view of the chest, 10/12/2016 at 1552 hours. COMPARISON Single view chest, 10/12/2016. HISTORY Endotracheal tube placement, central line placement, unresponsive today. FINDINGS Single view of the chest was obtained. Tip of the endotracheal tube is about 4.4 cm from the britney. Left IJ approach PICC line catheter tip is in the superior aspect of the SVC. No pneumothorax. Lungs are well-aerated and heart is of normal size. Dictated by... Cuba Dean M.D. THIS IS AN ELECTRONICALLY VERIFIED REPORT Cuba Dean M.D. at 10/13/2016 1:47 PM CPR/ljd TD: 10/13/2016 03:31 JOB #: [id number] MEDICAL IMAGING REPORT Page 1 of 1 COPY
--- NOTE | ~2016-10-12 | CR72 ---
[facility] A Service of [facility] RADIOLOGY TEXT RESULTS PATIENT: NANCY COLLAZO LOCATION: [place] [address] : 56 UNIT #: [id number] AGE: [address]: Kinga Bartholomew MD SEX: M ORDER DR: [id number] [facility] [address] [facility]. [place], [place] [address] [id number] I MR#: [id number] Acc #: [id number] NAME: NANCY COLLAZO : 1960 SEX: M STUDY DATE/TIME: 10/14/2016 6:06 UNIT: [facility] ROOM: [facility] STUDY DESCRIPTION: CR Chest Single View Portable Attending Physician: Kinga Bartholomew M.D. Ordering Physician: Ramo Marks M.D. Primary Care Physician: Primary Care Physician No MEDICAL IMAGING REPORT This report is preliminary unless electronic signature is present EXAM Portable chest DATE: 10/14/16 at 6:06 COMPARISON: 10/13/16 at 5:50 a.m. HISTORY Followup for respiratory failure. Symptoms for two days. FINDINGS ET tube remains in place tip 3 to 4 cm above the britney and left IJ central line and Dobbhoff type feeding tube remain as well. Lung aeration is symmetric without infiltrate, and slight vascular congestion appears to have resolved. There is no apparent effusion or pneumothorax. Dictated by... Oswald Vital M.D. THIS IS AN ELECTRONICALLY VERIFIED REPORT Oswald Vital M.D. at 10/14/2016 3:51 PM SHERIF/brady TD: 10/14/2016 09:11 JOB #: [id number] MEDICAL IMAGING REPORT Page 1 of 1 COPY
--- NOTE | ~2016-10-12 | CR72 ---
[facility] A Service of [facility] & [facility] RADIOLOGY TEXT RESULTS PATIENT: NANCY COLLAZO LOCATION: [place] [address] : 56 UNIT #: [id number] AGE: [address]: Kinga Bartholomew MD SEX: M ORDER DR: [id number] [facility] [address] [facility]. [place], [place] [address] [id number] I MR#: [id number] Acc #: [id number] NAME: NANCY COLLAZO : 1960 SEX: M STUDY DATE/TIME: 10/12/2016 13:29 UNIT: [facility] ROOM: [facility] STUDY DESCRIPTION: CR Chest Single View Portable Attending Physician: Narda Guevara M.D. Ordering Physician: Rosie Velasquez M.D. Primary Care Physician: Primary Care Physician No MEDICAL IMAGING REPORT This report is preliminary unless electronic signature is present EXAM Portable chest, 10/12/2016 HISTORY 56-year-old male with shortness of air today. COMPARISON Chest 10/13/2004 FINDINGS 2 frontal views of the chest demonstrate some patchy opacity in the right upper lobe. This could represent early pneumonia. Left lung clear. No pleural effusion or pneumothorax. Heart size and mediastinum within normal limits. Pulmonary vasculature unremarkable. IMPRESSION Minimal patchy opacity in the right upper lobe which could represent an early pneumonia in the appropriate clinical setting. Dictated by... Elia Christianson M.D. THIS IS AN ELECTRONICALLY VERIFIED REPORT Elia Christianson M.D. at 10/13/2016 8:45 AM ROBERT/avni TD: 10/13/2016 00:14 JOB #: [id number] MEDICAL IMAGING REPORT Page 1 of 1 COPY
--- NOTE | ~2016-10-12 | CR72 ---
[facility] A Service of [facility] RADIOLOGY TEXT RESULTS PATIENT: NANCY COLLAZO LOCATION: [address] : [birth year] UNIT #: [id number] AGE: [address]: Kinga Bartholomew MD SEX: M ORDER DR: [id number] [facility] [address] [facility]. [place], [place] [address] [id number] I MR#: [id number] Acc #: [id number] NAME: NANCY COLLAZO : 1960 SEX: M STUDY DATE/TIME: 10/15/2016 4:23 UNIT: [facility] ROOM: [facility] STUDY DESCRIPTION: CR Chest Single View Portable Attending Physician: Kinga Bartholomew M.D. Ordering Physician: Ramo Marks M.D. Primary Care Physician: Primary Care Physician No MEDICAL IMAGING REPORT This report is preliminary unless electronic signature is present EXAM Portable chest INDICATION Respiratory failure. Follow up endotracheal tube. Symptoms for 3 days. Sepsis. FINDINGS This portable view of the chest is unchanged from yesterday's study. The lungs are clear. The central venous catheter, Dobbhoff tube and endotracheal tube are stable. Dictated by... Rayray Pagan M.D. THIS IS AN ELECTRONICALLY VERIFIED REPORT Rayray Pagan M.D. at 10/15/2016 2:21 PM JIMMY/grace TD: 10/15/2016 06:54 JOB #: [id number] MEDICAL IMAGING REPORT Page 1 of 1 COPY
--- NOTE | ~2016-10-12 | CT71 ---
[facility] A Service of [facility] & [facility] / [facility] RADIOLOGY TEXT RESULTS PATIENT: NANCY COLLAZO LOCATION: [place] [address] : 56 UNIT #: [id number] AGE: [address]: Kinga Bartholomew MD SEX: M ORDER DR: [id number] [facility] [address]. [place], [place] [address] [id number] I MR#: [id number] Acc #: [id number] NAME: NANCY COLLAZO : 1960 SEX: M STUDY DATE/TIME: 10/14/2016 12:40 UNIT: [facility] ROOM: [facility] STUDY DESCRIPTION: CT Head Wo Contrast Attending Physician: Kinga Bartholomew M.D. Ordering Physician: Dana Mccarty A.P.R.N. Primary Care Physician: Primary Care Physician No MEDICAL IMAGING REPORT This report is preliminary unless electronic signature is present EXAM CT head, 10/14/2016 HISTORY Found unresponsive 10/12. On vent. Low attenuation on head CT done 10/13. Decreased responsiveness. Not improving. Non-verbal. TECHNIQUE This CT exam was performed with one or more of the following radiation dose reduction techniques: automatic exposure control, adjustment of mA and/or kV according to patient size, and iterative reconstruction. FINDINGS CT head performed skull base through vertex without intravenous contrast. Comparison 10/13/2016. The brainstem is unremarkable. In the central and left paracentral mid to upper rahul there is an area of abnormal diminished density measuring about 1.2 cm x 2.0 cm. This was present on yesterday's exam examination but shows better defined margins on current study consistent with evolving ischemic insult. No evidence of associated hemorrhage. No mass effect. In the right paramedian mid rahul there is an ill-defined somewhat band-like area of hypodensity. Delineation partially obscured by beam hardening artifact from adjacent bony structures. Unchanged from yesterday's examination and concerning for subacute ischemic insult as well. On today's examination, there is ill-defined patchy hypodensity in the right paracentral rahul more cephalad. This is more conspicuous than on prior examination and is concerning for acute to early subacute ischemic change. Again these areas show no hemorrhage. There are multifocal areas of hypodensity within the mid-right cerebellar hemisphere. These were present on prior examination as well. They are more conspicuous and better defined on today's study consistent with evolving ischemic insult. Given the multifocality of findings, [facility] A Service of [facility] & [facility] / [facility] RADIOLOGY TEXT RESULTS PATIENT: NANCY COLLAZO LOCATION: [facility] [address]01 : 56 UNIT #: [id number] AGE: [address]: Kinga Bartholomew MD SEX: M ORDER DR: thromboembolic phenomenon in the posterior circulation is a strong consideration. If the patient is a candidate, findings are best further characterized with MRI. The cerebral hemispheres show an area of encephalomalacic change along the lateral mid inferior left temporal lobe just anterosuperior to the left mastoid. No change from prior study and probably reflecting remote vascular insult. There is no clear indication of acute supratentorial ischemia. No hemorrhage. The midline structures are nondisplaced. The ventricles, cisterns and sulci show mild generalized enlargement consistent with mild generalized atrophy. There are cavernous carotid and distal vertebral arterial calcifications. No intra or extraaxial mass effect or abnormal fluid collection. Mucosal thickening and small air-fluid level right frontal sinus with extensive opacification of the right frontal sinus. There is mucosal thickening in the inferior right mastoid air cells and a small air-fluid level in a left inferior mastoid air cell raising the possibility of developing acute left mastoiditis. No fracture. IMPRESSION 1. Abnormal examination. See complete details in body of report above. 1.2 cm x 2.0 cm area of evolving subacute ischemic change in the anterior central and left paracentral rahul. Better defined than on yesterday's examination. I do not believe it has increased in extent and there is no evidence of hemorrhagic conversion. No mass effect. Patchy areas of hypodensity in the right paracentral mid rahul much more conspicuous than on yesterday's examination and favored to reflect evolving acute to subacute areas of ischemia. Again no hemorrhage or mass effect. 2. Multifocal hypodensities within the right cerebellar hemisphere as on yesterday's examination are better defined consistent with evolving subacute ischemic foci. Given the multifocal abnormalities in this region, consider thromboembolic etiology as cause for these multiple sites of evolving ischemia. Findings are best further evaluated with MRI if the patient is a candidate. If it would assist in management, CT angiography could be pursued for further evaluation of the vascular structures. 3. No acute abnormality is suggested in the supratentorial brain. There is an area of encephalomalacic change inferolateral mid left temporal lobe as on yesterday's examination. Favored to reflect remote vascular insult. 4. Mild atrophy. Vascular calcifications. 5. Right frontal sinusitis. Probably not significantly changed from yesterday's examination. 6. Small air-fluid level seen in a left mastoid air cell suggesting developing acute left mastoiditis. Mucosal thickening in bilateral inferior mastoid air cells. Dictated by... Ramses Long M.D. [facility]. [facility] A Service of [facility] & [facility] / [facility] RADIOLOGY TEXT RESULTS PATIENT: NANCY COLLAZO LOCATION: [place] [address] : 56 UNIT #: [id number] AGE: [address]: Kinga Bartholomew MD SEX: M ORDER DR: THIS IS AN ELECTRONICALLY VERIFIED REPORT Ramses Long M.D. at 10/20/2016 6:36 PM Jaymie TD: 10/14/2016 14:59 JOB #: [id number] MEDICAL IMAGING REPORT Page 1 of 1 COPY
--- NOTE | ~2016-10-12 | TOC ---
Unit #: [id number] #: [id number] Patient: NANCY LOPEZ [id number] [address] [address] [id number] I MR#: [id number] NAME: NANCY LOPEZ ROOM: [facility] Age: 56 Sex: M Admission Date: 10/12/2016 : 1960 Attending Physician: Kinga Bartholomew M.D. Primary Care Physician: No Primary Care Physician TRANSFER OF CARE SUMMARY PRINCIPAL DIAGNOSES 1. Sepsis secondary to aspiration pneumonia in addition to colitis. 2. Multifocal brainstem stroke. 3. Bilateral cerebellar stroke. 4. Acute hypoxic respiratory failure. 5. Acute kidney injury, prerenal, resolved. 6. Mild rhabdomyolysis. 7. Polysubstance overdose including amphetamines and opiates. 8. Hypertensive emergency. 9. Acute exacerbation of chronic obstructive pulmonary disease. 10. Hyperglycemia. 11. 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 12. Streptococcus pneumococcal pneumoniae. 13. Hypokalemia. 14. Moderate protein malnutrition. 15. Hypernatremia. CONSULTANTS 1. Dr. Marks, pulmonology. 2. Dr. Brand, neurology. PROCEDURES 1. Two-dimensional echocardiogram in October 13, 2016 with an ejection fraction of 50%, mildly enlarged right atrial size, moderately dilated right ventricle. 2. CT of the head without contrast on October 12, 2016. It was motion limited. No acute intracranial abnormality. 3. CT scan of abdomen and pelvis with contrast on October 12, 2016 with diffuse wall thickening of the colon and rectum. Fatty infiltration of liver noted. Multifocal parenchymal scarring in both kidneys. 4. CT angiogram of the chest on October 12, 2016 without evidence of PE, mild to moderate patchy multifocal infiltrates in the right upper lobe and left upper lobe and bilateral lower lobes. Emphysema of the upper lobes noted. Dilatation of distal aortic arch measuring 3.[address] of the head without contrast on October 13, 2016 with several areas of abnormal low attenuation. There was an area in the left hemipons measuring 2.1 x 1.4 cm, one in the right hemipons measuring 2.1 x 0.8 cm. Abnormal linear low attenuation right cerebellar hemisphere concerning for thromboembolic insults. 6. CT of the head without contrast on October 14, 2016 with a 1.2 x 2.0 cm subacute ischemic change in anterior central and left paracentral rahul. Patchy areas of hypodensity in the right paracentral mid rahul also consistent with subacute areas of ischemia. Multifocal Unit #: [id number] #: [id number] Patient: NANCY LOPEZ hypodensities in the right cerebellar hemisphere are noted. No abnormality in the supratentorial brain. Atrophy and vascular calcifications noted. 7. CT angiogram of head and neck on October 14, 2016 with moderate to high-grade stenosis at the origin of the right vertebral artery and extending upwards with a central filling defect throughout most of the vertebral artery consistent with an intraluminal thrombus. It is non-occlusive. Questionable dissection. CLINICAL HISTORY AND HOSPITAL COURSE Mr. Lopez is a 56-year-old male brought to the emergency department, with altered mental status, by roommates after he was unresponsive for at least 12 hours. Patient was unable to maintain his airway in the emergency department and was subsequently intubated. A CT scan of the head done in the emergency department was significantly degraded by motion but appeared otherwise normal. However, it was noted in the ER that patient was not moving his left side well. Lab work revealed an elevated white blood cell count of 36,000. Creatinine was mildly elevated at 1.1. Urine drug screen was positive for amphetamines and opiates. Patient was admitted to the ICU. Patient was started on broad-spectrum antibiotics for what was presumed to be aspiration pneumonia and Dr Marks was consulted. Patient was maintained on ventilatory support. Sputum culture also grew Strep pneumoniae in addition to Neisseria meningitidis which was felt to be a colonizer. Sepsis significantly improved initially and patient was maintained on broad-spectrum antibiotics. He did initially meet sepsis criteria but this initially improved during hospitalization then worsened as clinical status deteriorated as outlined below. As noted above patient had questionable left-sided weakness in the ER. Repeat CT scan of the brain done on October 13, 2016 revealed questionable multifocal stroke, particularly right sided. However, patient clinically seemed more consistent perhaps with a Anup paralysis than he did a stroke at least initially and he was placed on Keppra and Dr. Brand was consulted. Unfortunately the patient could not have an MRI of the brain due to an indwelling pain pump and he underwent a third CT scan of the brain on October 15, 2015, indeed revealing subacute multifocal brainstem and cerebellar strokes. He subsequently underwent a CT angiogram of the head and neck revealing a large left vertebral thrombus plus or minus dissection in addition to a basilar artery thrombus. These findings would be consistent with his clinical signs and symptoms. All of this was discussed extensively with the family by myself and Dr. Brand. Patient has been off sedation for many days in a row and having no meaningful clinical response and is at very high risk for a recurrent and/or evolving stroke due to known basilar and vertebral thrombus. Patient did have several electrolyte abnormalities. These have all been treated. Patient has subsequently developed a mild GI bleed though at time of dictation hemoglobin is stable at 13.6 and will note patient is not on anticoagulation. After significant discussion with family it is my impression that family is planning to withdraw care given all family members state patient would not want to live with his current clinical condition. I am awaiting official word from family and will initiate comfort measures when family Unit #: [id number] #: [id number] Patient: NANCY LOPEZ is ready. Further hospital course to be dictated as an addendum. Dictated by... Kinga Bartholomew M.D. [facility]LY [facility], [facility]/maria del carmen TD: 10/17/2016 17:00 JOB #: [id number] TRANSFER OF CARE SUMMARY Page 1 of 1 X Kinga Bartholomew MD TRANSFER OF CARE SUMMARY
--- NOTE | ~2016-10-12 | CT17 ---
[facility] A Service of [facility] & [facility] RADIOLOGY TEXT RESULTS PATIENT: NANCY COLLAZO LOCATION: [place] [address] : 56 UNIT #: [id number] AGE: [address]: Kinga Bartholomew MD SEX: M ORDER DR: [id number] [facility] [address] [place], [place] [address] [id number] I MR#: [id number] Acc #: [id number] NAME: NANCY COLLAZO : 1960 SEX: M STUDY DATE/TIME: 10/14/2016 17:15 UNIT: [facility] ROOM: [facility] STUDY DESCRIPTION: CT Angio Head Attending Physician: Kinga Bartholomew M.D. Ordering Physician: Shandra Brand M.D. MEDICAL IMAGING REPORT This report is preliminary unless electronic signature is present EXAM CTA head and neck HISTORY Refer below. FINDINGS Please refer to the CTA neck report on the same date for complete details. STAT * RESULT Dictated by... Rayray Pagan M.D. THIS IS AN ELECTRONICALLY VERIFIED REPORT Rayray Pagan M.D. at 10/15/2016 5:30 AM JIMMY/sourav TD: 10/14/2016 22:35 JOB #: [id number] MEDICAL IMAGING REPORT Page 1 of 1 COPY
--- NOTE | ~2016-10-12 | DS ---
Unit #: [id number] #: [id number] Patient: NANCY COLLAZO [id number] [address] [address] [id number] I MR#: [id number] NAME: NANCY COLLAZO ROOM: 47 Age: 56 Sex: M Admission Date: 10/12/2016 : 1960 Discharge Date: 10/20/2016 Attending Physician: Kinga Bartholomew M.D. Primary Care Physician: No Primary Care Physician DISCHARGE SUMMARY SUMMARY DATE AND TIME OF 10/20/16 at 0055 hours FINAL DIAGNOSES 1. Failure to thrive. 2. Pneumonia. 3. Sepsis secondary to pneumonia in addition to colitis. 4. Multifocal brainstem stroke. 5. Bilateral cerebellar stroke. 6. Acute hypoxic respiratory failure. CONSULTS 1. Dr. Marks. 2. Dr. Brand. HOSPITAL COURSE Please refer to the previously dictated hospital course on the Transfer Summary. The patient was found unresponsive and admitted. He had the above stated problems. After discussion with family members, the patient was extubated and he failed to thrive and subsequently . Dictated by... Kash Collier TD: 10/28/2016 11:53 JOB #: [id number] DISCHARGE SUMMARY Page 1 of 1 X Narda Guevara MD X DISCHARGE SUMMARY
--- NOTE | ~2016-10-12 | CR72 ---
[facility] A Service of [facility] & [facility] RADIOLOGY TEXT RESULTS PATIENT: NANCY COLLAZO LOCATION: [address] : [birth year] UNIT #: [id number] AGE: [address]: Kinga Bartholomew MD SEX: M ORDER DR: [id number] [facility] [address] [facility] [place], [place] [address] [id number] I MR#: [id number] Acc #: [id number] NAME: NANCY COLLAZO : 1960 SEX: M STUDY DATE/TIME: 10/13/2016 5:50 UNIT: [facility] ROOM: [facility] STUDY DESCRIPTION: CR Chest Single View Portable Attending Physician: Kinga Bartholomew M.D. Ordering Physician: Ramo Marks M.D. Primary Care Physician: Primary Care Physician No MEDICAL IMAGING REPORT This report is preliminary unless electronic signature is present EXAM AP portable chest 10/13/2016 HISTORY Respiratory failure. Patient on ventilator. Follow up pulmonary status. TECHNIQUE AP portable chest x-ray. FINDINGS The exam shows no change since yesterday. Endotracheal tube and left IJ central line remain in good position. The lungs appear clear. Heart size and pulmonary vascularity are normal. IMPRESSION Stable portable chest radiograph, unchanged since yesterday. Support devices in good position. Dictated by... Adrian Meraz M.D. THIS IS AN ELECTRONICALLY VERIFIED REPORT Adrian Meraz M.D. at 10/13/2016 3:54 PM Teresa TD: 10/13/2016 09:36 JOB #: [id number] MEDICAL IMAGING REPORT Page 1 of 1 COPY
--- NOTE | ~2016-10-12 | CT23 ---
[facility] A Service of [facility] & [facility] RADIOLOGY TEXT RESULTS PATIENT: NANCY COLLAZO LOCATION: [address] : 56 UNIT #: [id number] AGE: [address]: Kniga Bartholomew MD SEX: M ORDER DR: [id number] [facility] [address] [place], [place] [address] [id number] I MR#: [id number] Acc #: [id number] NAME: NANCY COLLAZO : 1960 SEX: M STUDY DATE/TIME: 10/14/2016 17:15 UNIT: [facility] ROOM: [facility] STUDY DESCRIPTION: CT Angio Neck Attending Physician: iKnga Bartholomew M.D. Ordering Physician: Shandra Brand M.D. MEDICAL IMAGING REPORT This report is preliminary unless electronic signature is present EXAM CTA of the head and neck with angiographic reconstructions INDICATIONS Patient found unresponsive 10/12/2016. Patient on ventilator. Evaluate for stroke. Pontine infarct seen on CT scan. TECHNIQUE Patient was given 100 mL of Isovue-370 and spiral imaging was performed from the aortic arch through the brain. 3-D structures of the arterial structures were generated and NASCET criteria was utilized. This CT exam was performed with one or more of the following radiation dose reduction techniques: automatic exposure control, adjustment of mA and/or kV according to patient size, and iterative reconstruction. FINDINGS There is some faint ground-glass infiltrate in the right upper lobe measuring about 3-4 in diameter. There are emphysematous changes in the apical regions. The thyroid gland, submandibular glands and parotid glands are normal. Images of the brain show a left-sided pontine infarct as well as 2 small infarcts in the right cerebellar hemisphere. These measure less a centimeter in diameter. The pontine area is about 2 in diameter. VASCULAR: The aortic arch is normal in size. The great vessels have separate origins and they are all patent. Vertebral arteries arise from the subclavian arteries artery. The left vertebral artery is smaller than the right and it is normal. The right vertebral artery is abnormal. It has a tubular filling defect running from its origin up through most of the tibial artery. This appears to represent a thrombus, probably originating from the stenosis at its origin. The more distal vertebral STS. [facility] A Service of [facility] RADIOLOGY TEXT RESULTS PATIENT: NANCY COLLAZO LOCATION: [address] : [birth year] UNIT #: [id number] AGE: [address]: Kinga Bartholomew MD SEX: M ORDER DR: artery is patent and it connects with the left lung to make the basilar artery. There is a tiny filling defect in the basilar artery which is non-occlusive, consistent with intraluminal thrombus. This extends all way up to the posterior cerebral arteries which are normal. The middle and anterior cerebral arteries are normal. The common arteries are normal bilaterally. There is small plaque formation in the proximal left internal artery without significant stenosis and there is no significant stenosis in the right internal carotid artery. There is a moderate stenosis of the right external iliac artery. IMPRESSION 1. There is a moderate to high-grade stenosis at origin of the right tibial artery and extending upwards from this plaque formation is a central filling defect that extends throughout most of the vertebral artery consistent with an intraluminal thrombus. It is non-occlusive. The more distal tibial artery is completely patent but there is also intraluminal thrombus visible within the basilar artery manifesting as a central filling defect. 2. Patient's CT scan of the brain does show left pontine and right cerebellar infarcts. 3. Patchy ground-glass infiltrate right apex. 4. No significant stenosis in either internal carotid artery. There is a moderate stenosis in the right external carotid artery. STAT * RESULT Dictated by... Rayray Pagan M.D. THIS IS AN ELECTRONICALLY VERIFIED REPORT Rayray Pagan M.D. at 10/15/2016 5:30 AM FEL/pcl TD: 10/14/2016 22:22 JOB #: [id number] MEDICAL IMAGING REPORT Page 1 of 1 COPY
--- NOTE | ~2016-10-12 | CR72 ---
[facility] A Service of [facility] & [facility] RADIOLOGY TEXT RESULTS PATIENT: NANCY COLLAZO LOCATION: [place] [address] : [birth year] UNIT #: [id number] AGE: [address]: Kinga Bartholomew MD SEX: M ORDER DR: [id number] [facility] [address] [place], [place] [address] [id number] I MR#: [id number] Acc #: [id number] NAME: NANCY COLLAZO : 1960 SEX: M STUDY DATE/TIME: 10/17/2016 4:03 UNIT: [facility] ROOM: [facility] STUDY DESCRIPTION: CR Chest Single View Portable Attending Physician: Kinga Bartholomew M.D. Ordering Physician: Ramo Marks M.D. Primary Care Physician: Primary Care Physician No MEDICAL IMAGING REPORT This report is preliminary unless electronic signature is present EXAM Single view chest INDICATION Respiratory failure. Intubation. FINDINGS Single portable AP view of the chest compared to 10/16/2016 and 10/15/2016. Support lines and tubes remain in place. Heart and mediastinal contours are stable. No new pulmonary opacities. No pneumothorax. IMPRESSION No interval change. Dictated by... Virgil Gray M.D. THIS IS AN ELECTRONICALLY VERIFIED REPORT Virgil Gray M.D. at 10/17/2016 8:08 AM MOE/grace TD: 10/17/2016 07:18 JOB #: [id number] MEDICAL IMAGING REPORT Page 1 of 1 COPY
--- NOTE | ~2016-10-12 | EKG ---
PATIENT: NANCY COLLAZO UNIT #: [id number] Ventricular Rate: 95 BPM Atrial Rate: 95 BPM P-R Interval: 124 ms QRS Duration: 74 ms Q-T Interval: 456 ms QTC Calculation(Bezet): 573 ms P [place]: 80 degrees Calculated R [place]: -52 degrees Calculated T [place]: 58 degrees Diagnosis Line: Sinus rhythm with Premature supraventricular Diagnosis Line: complexes Diagnosis Line: Biatrial enlargement Diagnosis Line: Left axis deviation Diagnosis Line: Pulmonary disease pattern Diagnosis Line: Septal infarct , age undetermined Diagnosis Line: Prolonged QT Diagnosis Line: Abnormal ECG Diagnosis Line: No previous ECGs available Diagnosis Line: Confirmed by KWASI MARIE MD ([id number]) on Diagnosis Line: 10/12/2016 4:00:26 PM INTERPRETING MD: LOVE
--- NOTE | ~2016-10-12 | CR72 ---
[facility] A Service of [facility] & [facility] RADIOLOGY TEXT RESULTS PATIENT: NANCY COLLAZO LOCATION: [address] : [birth year] UNIT #: [id number] AGE: [address]: Kinga Bartholomew MD SEX: M ORDER DR: [id number] [facility] [address] [facility] [place], [place] [address] [id number] I MR#: [id number] Acc #: [id number] NAME: NANCY COLLAZO : 1960 SEX: M STUDY DATE/TIME: 10/16/2016 4:22 UNIT: [facility] ROOM: [facility] STUDY DESCRIPTION: CR Chest Single View Portable Attending Physician: Kinga Bartholomew M.D. Ordering Physician: Ramo Marks M.D. Primary Care Physician: Primary Care Physician No MEDICAL IMAGING REPORT This report is preliminary unless electronic signature is present EXAM Portable chest INDICATION Follow up endotracheal tube. FINDINGS This portable view of the chest is compared with yesterday's study. The endotracheal tube and central venous catheter are in good position. The lungs are clear. The Dobbhoff tube is in good position. Dictated by... Rayray Pagan M.D. THIS IS AN ELECTRONICALLY VERIFIED REPORT Rayray Pagan M.D. at 10/16/2016 2:14 PM JIMMY/grace TD: 10/16/2016 05:59 JOB #: [id number] MEDICAL IMAGING REPORT Page 1 of 1 COPY
[2016-10-12 14:11] LABS: BASOPHIL# 0.1 X10e3 (0-0.3); BASOPHIL% 0.2 % (0-2.5); DIFF IND YES; HEMATOCRIT 54.1 % (38.0-50.0); HEMOGLOBIN 17.4 gm/dL (13.0-16.0); LYMPHOCYTE# 1.5 X10e3 (1.0-3.5); LYMPHOCYTE% 4.1 % (17.0-45.0); MEAN CELL VOLUME 80.5 FL (83-96); MEAN CORPUSCULAR HEMOGLOBIN 25.9 PG (28-34); MEAN CORPUSCULAR HGB CONC 32.1 g/dL (30-36); MEAN PLATELET VOLUME 7.9 FL (6.5-11.5); MONOCYTE# 1.3 X10e3 (0-1.0); MONOCYTE% 3.6 % (3.0-12.0); NEUTROPHIL# 33.2 X10e3 (1.5-7.1); NEUTROPHIL% 92.1 % (40-75); PLATELET COUNT 385 X10e3 (140-420); RED BLOOD COUNT 6.72 X10e (3.90-5.60)
[2016-10-12 14:20] LABS: POC - CKMB 18.3 ng/mL (0.0-7.9); POC - TROPONIN <0.05 ng/mL (<=0.05)
[2016-10-12 14:21] LABS: INR 1.1; PROTHROMBIN TIME (PATIENT) 11.7 SECONDS (9.6-11.5)
[2016-10-12 14:36] LABS: ALBUMIN SERUM 4.5 g/dL (3.5-5.0); ALCOHOL BLOOD <5 mg/dL ([, 0]); ALKALINE PHOSPHATASE 130 U/L (32-92); ALT (SGPT) 33 U/L (10-40); AMYLASE 20 U/L (0-46); AST (SGOT) 69 U/L (10-42); BILIRUBIN, DIRECT 0.2 mg/dL (0.0-0.2); BILIRUBIN,INDIRECT 0.7 mg/dL (0.0-0.9); BILIRUBIN,TOTAL 0.9 mg/dL (0.2-2.0); BLOOD UREA NITROGEN 25 mg/dL (9-23); BUN/CREATININE RATIO 22.72; CALCIUM SERUM 9.5 mg/dL (8.4-10.2); CARBON DIOXIDE 25 mmol/L (22-31); CHLORIDE 104 mmol/L (100-111); CREATININE SERUM 1.1 mg/dL (0.6-1.4); GLOM FILT RATE Estimated 73.6 mL/min (>60); GLUCOSE FASTING 146 mg/dL (70-110); LIPASE 16 U/L (22-51); POTASSIUM 3.7 mmol/L (3.5-5.1); PROTEIN TOTAL SERUM 8.3 g/dL (6.0-8.3); SODIUM 143 mmol/L (135-145)
[2016-10-12 14:37] LABS: ANISOCYTOSIS SL; PLATELET ESTIMATE NORMAL (NORMAL); POIKILOCYTOSIS SL
[2016-10-12 14:37] LABS: URINE SOURCE CLEAN CATCH
[2016-10-12 14:48] LABS: URINE APPEARANCE CLEAR; URINE BILIRUBIN NEG (NEG); URINE BLOOD NEG (NEG); URINE COLOR DK YELLOW; URINE GLUCOSE 250 MG/DL (NEG); URINE KETONE TRACE (NEG); URINE LEUKOCYTE ESTERASE NEG (NEG); URINE NITRATE NEG (NEG); URINE PH 5.5 (5-8); URINE PROTEIN TRACE (NEG); URINE SPECIFIC GRAVITY 1.023 (1.003-1.035)
[2016-10-12 14:49] LABS: CULTURE INDICATED? NO
[2016-10-12 14:53] LABS: AMPHETAMINE POS (NEG); BARBITURATES NEG (NEG); BENZODIAZEPINES NEG (NEG); COCAINE NEG (NEG); MARIJUANA NEG (NEG); OPIATES POS (NEG); TRICYCLIC ANTIDEPRESSANTS NEG (NEG); U METHADONE NEG (NEG)
[2016-10-12 16:11] LABS: ARTERIAL BLD GAS O2 SATURATION 97.6 % (90.0-100.0); ARTERIAL BLOOD GAS HCO3 25.7 mmol/L; ARTERIAL BLOOD GAS MET HB 1.8 %sat (0.0-2.0); ARTERIAL BLOOD GAS pH 7.312 (7.350-7.450)
[2016-10-12 16:12] LABS: ARTERIAL BLOOD GAS PCO2 50.9 mmHg (35.0-45.0)
[2016-10-12 16:13] LABS: ARTERIAL BLOOD GAS ART SITE LEFT RADIAL; ARTERIAL BLOOD GAS DELIVERY VENT; ARTERIAL BLOOD GAS VENT MODE AC; ARTERIAL DRAW? YES
[2016-10-12 16:27] LABS: INFLUENZA A NEG (NEG); INFLUENZA B NEG (NEG)
[2016-10-12 16:28] LABS: POC - CKMB 20.5 ng/mL (0.0-7.9); POC - TROPONIN <0.05 ng/mL (<=0.05)
[2016-10-12 20:17] LABS: ARTERIAL BLD GAS O2 SATURATION 70.6 % (90.0-100.0); ARTERIAL BLOOD GAS CARBOXY HB 0.4 %sat (0.0-9.0); ARTERIAL BLOOD GAS HCO3 27.1 mmol/L; ARTERIAL BLOOD GAS MET HB 1.4 %sat (0.0-2.0); ARTERIAL BLOOD GAS PCO2 48.7 mmHg (35.0-45.0); ARTERIAL BLOOD GAS pH 7.355 (7.350-7.450)
[2016-10-12 20:19] LABS: ARTERIAL BLOOD GAS DELIVERY VENT; ARTERIAL BLOOD GAS PO2 38.8 mmHg (80.0-100); ARTERIAL BLOOD GAS VENT MODE AC; ARTERIAL DRAW? NO
[2016-10-12 20:53] LABS: ARTERIAL BLD GAS O2 SATURATION 98.1 % (90.0-100.0); ARTERIAL BLOOD GAS MET HB 1.5 %sat (0.0-2.0); ARTERIAL BLOOD GAS pH 7.383 (7.350-7.450)
[2016-10-12 20:54] LABS: ARTERIAL BLOOD GAS ALLEN TEST NORMAL; ARTERIAL BLOOD GAS ART SITE LEFT RADIAL; ARTERIAL BLOOD GAS DELIVERY VENT; ARTERIAL BLOOD GAS VENT MODE AC; ARTERIAL DRAW? YES
[2016-10-13 03:31] LABS: BASOPHIL# 0.1 X10e3 (0-0.3); BASOPHIL% 0.2 % (0-2.5); DIFF IND NO; HEMATOCRIT 53.1 % (38.0-50.0); HEMOGLOBIN 16.8 gm/dL (13.0-16.0); LYMPHOCYTE# 0.6 X10e3 (1.0-3.5); LYMPHOCYTE% 1.7 % (17.0-45.0); MEAN CELL VOLUME 81.1 FL (83-96); MEAN CORPUSCULAR HEMOGLOBIN 25.7 PG (28-34); MEAN CORPUSCULAR HGB CONC 31.6 g/dL (30-36); MEAN PLATELET VOLUME 8.1 FL (6.5-11.5); MONOCYTE# 0.8 X10e3 (0-1.0); MONOCYTE% 2.3 % (3.0-12.0); NEUTROPHIL# 32.1 X10e3 (1.5-7.1); NEUTROPHIL% 95.8 % (40-75); PLATELET COUNT 252 X10e3 (140-420); RED BLOOD COUNT 6.54 X10e (3.90-5.60); RED CELL DISTRIBUTION WIDTH 16.1 % (11.0-15.5); WHITE BLOOD COUNT 33.5 X10e3 (4.0-10.5)
[2016-10-13 03:44] LABS: BUN/CREATININE RATIO 19.23; CALCIUM SERUM 8.7 mg/dL (8.4-10.2); CREATININE SERUM 1.3 mg/dL (0.6-1.4); GLOM FILT RATE Estimated 60.2 mL/min (>60); POTASSIUM 3.9 mmol/L (3.5-5.1)
[2016-10-13 04:02] LABS: ARTERIAL BLD GAS O2 SATURATION 98.2 % (90.0-100.0); ARTERIAL BLOOD GAS HCO3 23.2 mmol/L; ARTERIAL BLOOD GAS MET HB 1.4 %sat (0.0-2.0); ARTERIAL BLOOD GAS PCO2 39.9 mmHg (35.0-45.0); ARTERIAL BLOOD GAS pH 7.373 (7.350-7.450)
[2016-10-13 04:20] LABS: ARTERIAL BLOOD GAS ALLEN TEST NORMAL; ARTERIAL BLOOD GAS ART SITE RIGHT RADIAL; ARTERIAL BLOOD GAS DELIVERY VENT; ARTERIAL BLOOD GAS VENT MODE A/C; ARTERIAL DRAW? YES
[2016-10-13 12:04] LABS: ARTERIAL BLD GAS O2 SATURATION 97.3 % (90.0-100.0); ARTERIAL BLOOD GAS HCO3 22.7 mmol/L; ARTERIAL BLOOD GAS MET HB 1.5 %sat (0.0-2.0); ARTERIAL BLOOD GAS PCO2 37.5 mmHg (35.0-45.0)
[2016-10-13 12:06] LABS: ARTERIAL BLOOD GAS ALLEN TEST NORMAL; ARTERIAL BLOOD GAS ART SITE LEFT RADIAL; ARTERIAL BLOOD GAS VENT MODE AC; ARTERIAL DRAW? YES
[2016-10-14 04:36] LABS: ARTERIAL BLD GAS O2 SATURATION 93.5 % (90.0-100.0); ARTERIAL BLOOD GAS HCO3 24.9 mmol/L; ARTERIAL BLOOD GAS MET HB 1.2 %sat (0.0-2.0); ARTERIAL BLOOD GAS PCO2 41.4 mmHg (35.0-45.0); ARTERIAL BLOOD GAS PO2 89.2 mmHg (80.0-100); ARTERIAL BLOOD GAS pH 7.388 (7.350-7.450)
[2016-10-14 04:41] LABS: ARTERIAL BLOOD GAS ALLEN TEST NORMAL; ARTERIAL BLOOD GAS ART SITE RIGHT RADIAL; ARTERIAL BLOOD GAS DELIVERY VENT; ARTERIAL BLOOD GAS VENT MODE AC; ARTERIAL DRAW? YES
[2016-10-14 05:50] LABS: HEMATOCRIT 48.5 % (38.0-50.0); HEMOGLOBIN 15.5 gm/dL (13.0-16.0); MEAN CELL VOLUME 80.4 FL (83-96); MEAN CORPUSCULAR HEMOGLOBIN 25.7 PG (28-34); MEAN PLATELET VOLUME 8.5 FL (6.5-11.5); RED BLOOD COUNT 6.03 X10e (3.90-5.60); RED CELL DISTRIBUTION WIDTH 16.2 % (11.0-15.5); WHITE BLOOD COUNT 33.7 X10e3 (4.0-10.5)
[2016-10-14 06:23] LABS: INR 1.1; PARTIAL THROMBOPLASTIN TIME 31.5 SECONDS (23.5-31.3); PROTHROMBIN TIME (PATIENT) 12.1 SECONDS (9.6-11.5)
[2016-10-14 06:37] LABS: ALBUMIN SERUM 2.9 g/dL (3.5-5.0); BILIRUBIN,TOTAL 0.5 mg/dL (0.2-2.0); BUN/CREATININE RATIO 26.66; CALCIUM SERUM 8.8 mg/dL (8.4-10.2); CREATININE SERUM 0.9 mg/dL (0.6-1.4); GLOM FILT RATE Estimated 93.8 mL/min (>60); PROTEIN TOTAL SERUM 6.3 g/dL (6.0-8.3)
[2016-10-14 06:40] LABS: POTASSIUM 2.9 mmol/L (3.5-5.1)
[2016-10-14 07:02] LABS: CHOLESTEROL 112 mg/dL (0-200); HDL CHOLESTEROL 58 mg/dL (29-75); LDL CHOLESTEROL 39 mg/dL ([, -130]); LDL/HDL RATIO 1 RATIO (0-4); TRIGLYCERIDES 75 mg/dL (10-160)
[2016-10-14 11:11] LABS: ARTERIAL BLD GAS O2 SATURATION 96.5 % (90.0-100.0); ARTERIAL BLOOD GAS HCO3 21.6 mmol/L; ARTERIAL BLOOD GAS MET HB 1.3 %sat (0.0-2.0); ARTERIAL BLOOD GAS PCO2 33.8 mmHg (35.0-45.0); ARTERIAL BLOOD GAS PO2 99.8 mmHg (80.0-100); ARTERIAL BLOOD GAS pH 7.414 (7.350-7.450)
[2016-10-14 11:13] LABS: ARTERIAL BLOOD GAS ART SITE LEFT RADIAL; ARTERIAL BLOOD GAS DELIVERY VENT; ARTERIAL BLOOD GAS VENT MODE CPAP; ARTERIAL DRAW? YES
[2016-10-15 00:26] LABS: HA AB IGM (HEPPAN) Nonreactive (()); HB CORE AB IGM (HEPPAN) Nonreactive (Nonreactive); HB S AG (HEPPAN) Nonreactive (Nonreactive); HEP C AB (HEPPAN) Nonreactive (Nonreactive); HEP C AB SIGNAL TO CUTOFF 0.02 ratio (<1.00)
[2016-10-15 04:21] LABS: ARTERIAL BLD GAS O2 SATURATION 96.6 % (90.0-100.0); ARTERIAL BLOOD GAS HCO3 24.6 mmol/L; ARTERIAL BLOOD GAS MET HB 1.6 %sat (0.0-2.0); ARTERIAL BLOOD GAS PCO2 35.3 mmHg (35.0-45.0); ARTERIAL BLOOD GAS pH 7.452 (7.350-7.450)
[2016-10-15 04:25] LABS: ARTERIAL BLOOD GAS ALLEN TEST NORMAL; ARTERIAL BLOOD GAS ART SITE RIGHT RADIAL; ARTERIAL BLOOD GAS DELIVERY VENT; ARTERIAL BLOOD GAS VENT MODE AC; ARTERIAL DRAW? YES
[2016-10-15 06:13] LABS: HEMATOCRIT 45.7 % (38.0-50.0); HEMOGLOBIN 14.6 gm/dL (13.0-16.0); LYMPHOCYTE# 0.4 X10e3 (1.0-3.5); LYMPHOCYTE% 1.2 % (17.0-45.0); MEAN CELL VOLUME 80.8 FL (83-96); MEAN CORPUSCULAR HEMOGLOBIN 25.9 PG (28-34); MEAN PLATELET VOLUME 8.9 FL (6.5-11.5); MONOCYTE% 3.1 % (3.0-12.0); NEUTROPHIL# 31.7 X10e3 (1.5-7.1); NEUTROPHIL% 95.7 % (40-75); PLATELET COUNT 233 X10e3 (140-420); RED BLOOD COUNT 5.65 X10e (3.90-5.60); RED CELL DISTRIBUTION WIDTH 16.2 % (11.0-15.5); WHITE BLOOD COUNT 33.2 X10e3 (4.0-10.5)
[2016-10-15 06:20] LABS: DIFF IND YES
[2016-10-15 07:02] LABS: ANISOCYTOSIS SL; PLATELET ESTIMATE NORMAL (NORMAL)
[2016-10-15 07:42] LABS: ALBUMIN SERUM 2.4 g/dL (3.5-5.0); BILIRUBIN,TOTAL 0.5 mg/dL (0.2-2.0); BUN/CREATININE RATIO 37.77; CALCIUM SERUM 8.3 mg/dL (8.4-10.2); CREATININE SERUM 0.9 mg/dL (0.6-1.4); GLOM FILT RATE Estimated 93.8 mL/min (>60); MAGNESIUM 2.2 mg/dL (1.6-3.0); POTASSIUM 3.4 mmol/L (3.5-5.1); PROTEIN TOTAL SERUM 5.5 g/dL (6.0-8.3)
[2016-10-15 10:05] LABS: ARTERIAL BLD GAS O2 SATURATION 97.4 % (90.0-100.0); ARTERIAL BLOOD GAS HCO3 25.5 mmol/L; ARTERIAL BLOOD GAS MET HB 1.5 %sat (0.0-2.0); ARTERIAL BLOOD GAS PCO2 32.9 mmHg (35.0-45.0); ARTERIAL BLOOD GAS pH 7.497 (7.350-7.450)
[2016-10-15 10:07] LABS: ARTERIAL BLOOD GAS ART SITE LEFT RADIAL; ARTERIAL BLOOD GAS DELIVERY VENT; ARTERIAL BLOOD GAS VENT MODE CPAP; ARTERIAL DRAW? YES
[2016-10-16 04:36] LABS: ARTERIAL BLD GAS O2 SATURATION 98.8 % (90.0-100.0); ARTERIAL BLOOD GAS ALLEN TEST NORMAL; ARTERIAL BLOOD GAS ART SITE LEFT RADIAL; ARTERIAL BLOOD GAS DELIVERY VENT; ARTERIAL BLOOD GAS HCO3 28.9 mmol/L; ARTERIAL BLOOD GAS MET HB 1.5 %sat (0.0-2.0); ARTERIAL BLOOD GAS PCO2 37.1 mmHg (35.0-45.0); ARTERIAL DRAW? YES
[2016-10-16 04:37] LABS: ARTERIAL BLOOD GAS VENT MODE AC
[2016-10-16 05:39] LABS: HEMATOCRIT 44.2 % (38.0-50.0); HEMOGLOBIN 14.1 gm/dL (13.0-16.0); MEAN CELL VOLUME 81.1 FL (83-96); MEAN CORPUSCULAR HEMOGLOBIN 25.8 PG (28-34); MEAN CORPUSCULAR HGB CONC 31.8 g/dL (30-36); RED BLOOD COUNT 5.45 X10e (3.90-5.60); RED CELL DISTRIBUTION WIDTH 16.1 % (11.0-15.5)
[2016-10-16 05:55] LABS: ALBUMIN SERUM 2.3 g/dL (3.5-5.0); BILIRUBIN,TOTAL 0.6 mg/dL (0.2-2.0); BUN/CREATININE RATIO 43.33; CALCIUM SERUM 8.6 mg/dL (8.4-10.2); CREATININE SERUM 0.9 mg/dL (0.6-1.4); GLOM FILT RATE Estimated 93.8 mL/min (>60); POTASSIUM 4.2 mmol/L (3.5-5.1); PROTEIN TOTAL SERUM 5.1 g/dL (6.0-8.3)
[2016-10-16 12:10] LABS: ARTERIAL BLD GAS O2 SATURATION 97.1 % (90.0-100.0); ARTERIAL BLOOD GAS HCO3 29.6 mmol/L; ARTERIAL BLOOD GAS MET HB 1.4 %sat (0.0-2.0); ARTERIAL BLOOD GAS PCO2 36.2 mmHg (35.0-45.0); ARTERIAL BLOOD GAS pH 7.521 (7.350-7.450)
[2016-10-16 12:11] LABS: ARTERIAL BLOOD GAS ALLEN TEST NORMAL; ARTERIAL BLOOD GAS ART SITE LEFT RADIAL; ARTERIAL BLOOD GAS DELIVERY T-PIECE; ARTERIAL DRAW? YES
[2016-10-17 05:08] LABS: ARTERIAL BLD GAS O2 SATURATION 97.7 % (90.0-100.0); ARTERIAL BLOOD GAS HCO3 29.1 mmol/L; ARTERIAL BLOOD GAS MET HB 1.5 %sat (0.0-2.0); ARTERIAL BLOOD GAS PCO2 34.6 mmHg (35.0-45.0); ARTERIAL BLOOD GAS pH 7.533 (7.350-7.450)
[2016-10-17 05:45] LABS: HEMATOCRIT 43.1 % (38.0-50.0); HEMOGLOBIN 13.6 gm/dL (13.0-16.0); MEAN CORPUSCULAR HEMOGLOBIN 25.5 PG (28-34); MEAN CORPUSCULAR HGB CONC 31.5 g/dL (30-36); MEAN PLATELET VOLUME 9.2 FL (6.5-11.5); RED BLOOD COUNT 5.32 X10e (3.90-5.60); RED CELL DISTRIBUTION WIDTH 16.5 % (11.0-15.5); WHITE BLOOD COUNT 29.2 X10e3 (4.0-10.5)
[2016-10-17 05:59] LABS: ARTERIAL BLOOD GAS ALLEN TEST NORMAL; ARTERIAL BLOOD GAS ART SITE LEFT RADIAL; ARTERIAL BLOOD GAS DELIVERY VENT; ARTERIAL BLOOD GAS VENT MODE AC; ARTERIAL DRAW? YES
[2016-10-17 06:49] LABS: ALBUMIN SERUM 2.3 g/dL (3.5-5.0); BILIRUBIN,TOTAL 0.9 mg/dL (0.2-2.0); BUN/CREATININE RATIO 52.22; CALCIUM SERUM 8.5 mg/dL (8.4-10.2); CREATININE SERUM 0.9 mg/dL (0.6-1.4); GLOM FILT RATE Estimated 93.8 mL/min (>60); MAGNESIUM 2.5 mg/dL (1.6-3.0); PROTEIN TOTAL SERUM 5.3 g/dL (6.0-8.3)
== END 2016-10-20 02:11 | disposition expired | DRG 870 ==
LOC: CED 17:10 → CEDOF 20:52 → CICCU2 22:56 → C4C 10-18 07:42
PROVIDERS: Emergency Medicine; Internal Medicine; Nurse Practitioner
PROC: 5A1955Z Respiratory Ventilation, Greater than 96 Consecutive Hours (ICD-10-PCS; principal; 2016-10-12)
PROC: 0BH17EZ Insertion of Endotracheal Airway into Trachea, Via Natural or Artificial Opening (ICD-10-PCS; 2016-10-12)
PROC: B30TZZZ Plain Radiography of Left Pulmonary Artery (ICD-10-PCS; 2016-10-12)
PROC: B30SZZZ Plain Radiography of Right Pulmonary Artery (ICD-10-PCS; 2016-10-12)
PROC: 05HM33Z Insertion of Infusion Device into Right Internal Jugular Vein, Percutaneous Approach (ICD-10-PCS; 2016-10-12)
PROC: B543ZZA Ultrasonography of Right Jugular Veins, Guidance (ICD-10-PCS; 2016-10-12)
PROC: 0DH67UZ Insertion of Feeding Device into Stomach, Via Natural or Artificial Opening (ICD-10-PCS; 2016-10-13)
PROC: B246ZZZ Ultrasonography of Right and Left Heart (ICD-10-PCS; 2016-10-13)
DX: A41.9 Sepsis, unspecified organism (principal); R65.21 Severe sepsis with septic shock; J96.01 Acute respiratory failure with hypoxia; I63.449 Cerebral infarction due to embolism of unspecified cerebellar artery; J69.0 Pneumonitis due to inhalation of food and vomit; G92 Toxic encephalopathy; N17.9 Acute kidney failure, unspecified; K92.2 Gastrointestinal hemorrhage, unspecified; J44.1 Chronic obstructive pulmonary disease with (acute) exacerbation; M62.82 Rhabdomyolysis; G81.94 Hemiplegia, unspecified affecting left nondominant side; E44.0 Moderate protein-calorie malnutrition; E87.0 Hyperosmolality and hypernatremia; B95.4 Other streptococcus as the cause of diseases classified elsewhere; R62.7 Adult failure to thrive; I10 Essential (primary) hypertension; F17.210 Nicotine dependence, cigarettes, uncomplicated; T40.2X1A Poisoning by other opioids, accidental (unintentional), initial encounter; T43.621A Poisoning by amphetamines, accidental (unintentional), initial encounter; Y92.9 Unspecified place or not applicable; F11.10 Opioid abuse, uncomplicated; F15.10 Other stimulant abuse, uncomplicated; K52.9 Noninfective gastroenteritis and colitis, unspecified; R73.9 Hyperglycemia, unspecified; T38.0X5A Adverse effect of glucocorticoids and synthetic analogues, initial encounter; Z68.20 Body mass index [BMI] 20.0-20.9, adult
CPT/HCPCS: 36415; 36600; 51702; 70450; 70496; 70498; 71010; 71275; 74000; 74177; 80048; 80053; 80061; 80074; 80076; 80307; 81003; 82140; 82150; 82274; 82308; 82550; 82553; 82803; 82947; 83036; 83605; 83690; 83735; 83880; 84132; 84484; 85025; 85027; 85610; 85730; 86140; 87040; 87045; 87070; 87077; 87186; 87205; 87427; 87449; 87493; 87804; 87806; 87899; 93005; 93306; 94002; 94003; 94640; 94760; 94761; 95816; 96365; 96366; 96375; 99291; C9113; G0480; J0360; J0696; J1650; J1815; J1940; J1953; J1956; J2060; J2250; J2270; J2543; J2765; J2920; J3010; J3490; Q9967